=== PATIENT | male | born 1970 | race Caucasian/White ===

== ENCOUNTER → 2017-07-01 | Outpatient (CLI) | payer BC ==
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
== END ==
LOC: SLEEP 15:39
PROVIDERS: ATTEND Internal Medicine Critical Care Medicine
DX: G47.33 Obstructive sleep apnea (adult) (pediatric) (principal); G47.10 Hypersomnia, unspecified; E78.5 Hyperlipidemia, unspecified; I10 Essential (primary) hypertension; F17.200 Nicotine dependence, unspecified, uncomplicated; Z79.899 Other long term (current) drug therapy
CPT/HCPCS: 99211

== ENCOUNTER → 2018-01-06 | Outpatient (CLI) | payer BC ==
--- NOTE | 2018-01-06 15:43 | PN ---
PROGRESS NOTE This is a 47-year-old male patient coming in for a followup regarding his NICOLE treatment. The patient was diagnosed having severe NICOLE with an AHI of 79. The patient has been asked to come and undergo a CPAP titration. However he was unable to complete the titration and he left AMA. Based on that, I gave the patient an automatic CPAP unit and today he is coming in for a compliancy check. It seems that the patient is compliant and he is trying to become more compliant as he sees benefits from the treatment. He has been able to average around 4.8 hours of CPAP use per night. His CPAP use for more than 4 hours is 16/30 over the past 30 days. He is on an auto CPAP mode with minimum pressure of 4, maximum pressure of 20 and his P90 pressure is at 13.2. He is having leaks around 30 L per minute. His AHI while on treatment is down to 1.6. He has been benefiting from the treatment. He was using a medium-sized Simplus full-face mask, which I have upgraded to a large-sized and currently he is using a Grant FX with a chin strap. He prefers the nose pillow. However he notes that at times the pressure is quite high to the point where it leaks around his nose and he wants to fix it at a lower pressure. Based on the P90 pressure which was at 13.2, I changed the patient to a CPAP pressure which is fixed at 13 and this will hopefully help with his compliancy. I also put a 10 minutes of ramp time. The patient is benefitting from treatment, much more alert and awake during the day and has no specific complaints. He is very content with the treatment. REVIEW OF SYSTEMS: CONSTITUTIONAL: No recent weight gain, weight loss. No fever, chills or night sweats. No allergic rhinitis. No sinus pain. No cough or sputum production. No chest pain. No palpitation. No heartburn. No nausea or vomiting. No dysuria, frequency or urgency. No nocturia. No falls. No grinding of the teeth. No sleepwalking or sleep talking. No anxiety or depression. No change in mental status, seizure activity or any other problems. BP is 137/80, pulse 63, respirations 16, temperature 98.4, saturation 95% on room air. BMI 36.4, weight is 261. Height is 71 inches. Verona score is down to 2. GENERAL APPEARANCE: Obese, calm, comfortable. Head is atraumatic, normocephalic. Neck is short and supple. Crowding of posterior pharynx. Mallampati class IV. LUNGS: Clear to auscultation. HEART: Sounds are regular. Normal S1, S2. No S3. No murmurs. ABDOMEN: Soft, nontender. No organomegaly. EXTREMITIES: No edema. No cyanosis or clubbing. NEUROLOGIC: The patient is alert and oriented x3. There is no focal neurological deficits. PSYCHIATRIC: The patient has appropriate mood and affect. SKIN: Negative for any wounds or ulceration. IMPRESSION: 1. Severe obstructive sleep apnea with an AHI of 89, currently on auto CPAP therapy. 2. Hypersomnia, improving. 3. Leaks around the mask currently utilizing a nose pillow with improved compliance. 4. haul driver. PLAN: 1. Continue to using the Grant FX nose mask with a chin strap. 2. Switch this patient to a fixed CPAP with a pressure of 30 cm of water with a C flex of 3. 3. Add 10 minutes of ramp time. 4. Encourage weight loss. 5. Treatment is successful and would like to see improved compliance over the next few months. For the most part, the patient is responding to treatment. Verona score is down to 2. Will continue to follow. MMODL / IJN: [id number] /
== END | disposition home or self-care (01) ==
LOC: SLEEP 13:09
PROVIDERS: ATTEND Internal Medicine Critical Care Medicine
DX: G47.33 Obstructive sleep apnea (adult) (pediatric) (principal); G47.10 Hypersomnia, unspecified; Z99.89 Dependence on other enabling machines and devices

== ENCOUNTER → 2018-06-20 | Outpatient (CLI) | payer BC ==
--- NOTE | 2018-06-20 11:29 | XR ---
Lumbar spine HISTORY: Low back pain 3 views of the lumbar spine Lumbar vertebral bodies show preserved height, alignment, bone mineralization. There is partial sacra lization of L5. Loss of disc height L5-S1. Multilevel spondylosis is present. Vascular calcifications noted in the aortoiliac distribution. IMPRESSION: Degenerative disc disease and additional findings above. Lumbar MRI may be of benefit.
== END ==
LOC: RADXRMAIN 12:00
PROVIDERS: ATTEND Family Medicine
DX: M54.9 Dorsalgia, unspecified (principal); M51.36 Other intervertebral disc degeneration, lumbar region
CPT/HCPCS: 72100

== ENCOUNTER → 2018-07-30 | Outpatient (CLI) | payer BC ==
--- NOTE | 2018-07-30 12:26 | XR ---
EXAMINATION TYPE: XR chest 2V DATE OF EXAM: 07/30/2018 COMPARISON: None INDICATION: Cough TECHNIQUE: Frontal and lateral views of the chest are obtained. FINDINGS: The heart size is normal. The pulmonary vasculature is normal. There is a left upper lobe consolidation. Correlate for pneumonia. Underlying mass is not excluded. T his should be followed to clearing. . IMPRESSION: 1. Left upper lobe consolidation suspicious for pneumonia. Underlying mass is not excluded. Follow-up to clearing is recommended.
--- NOTE | 2018-07-30 12:46 | CT ---
EXAMINATION TYPE: CT abdomen pelvis wo con DATE OF EXAM: 07/30/2018 COMPARISON: None HISTORY: Hematuria CT DLP: 876 mGycm Automated exposure control for dose reduction was used. TECHNIQUE: Helical acquisition of images from the lung bases through the pelvis. FINDINGS: Lack of intravenous contrast could compromise sensitivity. LUNG BASES: No significant abnormality is appreciated. AORTA: No significant abnormality is appreciataed. LIVER/GB: No significant abnormality is appreciated. PANCREAS: No significant abnormality is seen. SPLEEN: No significant abnormality is seen. ADRENALS: No significant abnormality is seen. KIDNEYS: Nonobstructive calculus present at the lower pole of the right kidney measures approximately 7 to 8 mm, midpole calculus measures only 3 mm. Right kidney lower pole shows a focus of decreased a ttenuation measuring approximately 2.5 cm which may represent a cortical cyst. No ureteral calculus o r hydronephrosis bilaterally. REPRODUCTIVE ORGANS: Prostate shows associated calcifications. URINARY BLADDER: No significant abnormality is seen. BOWEL: No significant abnormality is seen. Appendix is normal. FREE AIR: No Free Air is visible. ASCITES: None visible. PELVIC ADENOPATHY: None visualized. RETROPERITONEAL ADENOPATHY: No Retroperitoneal Adenopathy visible. OSSEOUS STRUCTURES: No significant abnormality is seen. Partial sacralization of L5 on the left, spi nal curvature could be positional. IMPRESSION: NONOBSTRUCTIVE RIGHT NEPHROLITHIASIS. NONCONTRAST EXAM. ADDITIONAL FINDINGS ABOVE.
== END | disposition home or self-care (01) ==
LOC: RADCTMAIN 11:20
PROVIDERS: ATTEND Nurse Practitioner Family
DX: N20.0 Calculus of kidney (principal); N42.89 Other specified disorders of prostate; R05 Cough; R51 Headache; F17.200 Nicotine dependence, unspecified, uncomplicated
CPT/HCPCS: 71046; 74176

== ENCOUNTER → 2018-09-08 | Outpatient (CLI) | payer BC ==
--- NOTE | 2018-09-08 09:36 | NM ---
Nuclear medicine hepatobiliary scan. HISTORY: Pain. DOSAGE: The patient seated 8 ounces of ensure plus and 5.3 mCi of Technetium 99m Choletec. FINDINGS: There is normal hepatic extraction. The gallbladder is seen by 20 minutes. There is bilia ry to bowel clearance is not seen by 60 minutes. This is a nonspecific finding. Ejection fraction is 84%. IMPRESSION: 1. Ejection fraction of 84% which can occasionally be associated with hyperdynamic gallbladder, corre late clinically.
== END | disposition home or self-care (01) ==
LOC: RADNMMAIN 06:28
PROVIDERS: ATTEND Nurse Practitioner Family
DX: R10.11 Right upper quadrant pain (principal); R19.7 Diarrhea, unspecified
CPT/HCPCS: 78226; A9537

== ENCOUNTER 2018-11-13 10:19 | Day surgery (SDC) | payer BC ==
[2018-11-11 10:44] VITALS: BMI 36.2
[~2018-11-13 10:19] MED LIST: LACTATED RINGERS 1,000 ML IV SCH
[2018-11-13 10:32] VITALS: TEMP 97.8
[2018-11-13] MEDS ORDERED: LACTATED RINGERS 1,000 ML IV ONE (10:32)
[2018-11-13] MEDS ORDERED: LIDOCAINE 1% 20 ML VIAL (10MG/ML) FOR IV START INTRADERMA ONE (10:32)
[2018-11-13 10:43] LABS: Glucose,Whole Blood 92 mg/dL (75-99)
[2018-11-13] MEDS ORDERED: PROPOFOL 10 MG/ML 20 ML VIAL IV ONE (11:19)
--- NOTE | 2018-11-13 11:28 | P.GSHP ---
History of Present Illness H&P Date: 11/13/18 Chief Complaint: Change in bowel habits Patient has had recent complaints of frequent diarrhea. No rectal bleeding or melena. No mucus. No family history of colon cancer or inflammatory bowel disease. Past Medical History Past Medical History: Diabetes Mellitus, Hyperlipidemia, Hypertension Additional Past Medical History / Comment(s): NOT TAKING METFORMIN AT THIS TIME R/T DIARRHEA History of Any Multi-Drug Resistant Organisms: None Reported Past Surgical History: No Surgical Hx Reported Past Anesthesia/Blood Transfusion Reactions: No Reported Reaction Additional Past Anesthesia/Blood Transfusion Reaction / Comment(s): NO PRIOR SX HX Smoking Status: Current every day smoker - Past Family History Mother Family Medical History: Cancer Medications and Allergies Home Medications Medication Instructions Recorded Confirmed Type Atorvastatin [Lipitor] 40 mg PO DAILY 05/06/17 11/11/18 History Bisoprolol-Hctz 10-6.25 mg [Ziac 1 each PO DAILY 05/06/17 11/11/18 History 10-6.25] ALPRAZolam [Xanax] 0.25 mg PO HS PRN 11/11/18 11/11/18 History Escitalopram [Lexapro] 20 mg PO DAILY 11/11/18 11/11/18 History Allergies Allergy/AdvReac Type Severity Reaction Status Date / Time No Known Allergies Allergy Verified 11/11/18 10:36 Surgical - Exam Vital Signs Temp Pulse Resp BP Pulse Ox 97.8 F 71 18 200/93 97 11/13/18 10:30 11/13/18 10:30 11/13/18 10:30 11/13/18 10:30 11/13/18 10:30 Physical exam: General: Well-developed, well-nourished HEENT: Normocephalic, sclerae nonicteric Abdomen: Nontender, nondistended Extremities: No edema Neuro: Alert and oriented Assessment and Plan (1) Change in bowel habits Narrative/Plan: Will proceed with colonoscopy Current Visit: Yes Status: Acute Code(s): R19.4 - CHANGE IN BOWEL HABIT SNOMED Code(s): 229104212
--- NOTE | 2018-11-13 11:44 | P.PCN ---
Date of Procedure: 11/13/18 Procedure(s) Performed: PREOPERATIVE DIAGNOSIS: Change in bowel habits, diarrhea POSTOPERATIVE DIAGNOSIS: Sigmoid and rectal polyp PROCEDURE: Colonoscopy with random biopsy and snare polypectomies ANESTHESIA: MAC SURGEON: Yehuda Vallejo M.D. SPECIMENS: Random biopsies, polyps ENDOSCOPIC PROCEDURE: The patient was placed on the endoscopy table in the left decubitus position. The Olympus colonoscope was inserted into the anus and passed under direct visualization to the base of the cecum. The appendiceal orifice was visualized. From that point the scope was slowly withdrawn inspecting all surfaces carefully. There were no neoplastic inflammatory or polypoid lesions throughout the cecum, ascending, transverse, and descending colon. In the sigmoid colon a pedunculated polyp was identified and removed using the snare with cautery technique. In the rectum a smaller polyp was seen and removed in a similar fashion. I took random biopsies throughout the colon using the cold biopsy forceps. This was to evaluate for microscopic colitis. There was no visible diverticulosis. Digital rectal examination was normal. The patient was taken to the recovery room in stable condition per anesthesia guidelines. RECOMMENDATIONS: Await biopsy results.
[2018-11-13 11:51] VITALS: RESP 16
[2018-11-13 12:08] VITALS: BP 166/97; PULSE 68
== END 2018-11-13 12:33 | disposition home or self-care (01) ==
LOC: ORWHC2ENDO 10:19
PROVIDERS: ATTEND Surgery
DX: D12.5 Benign neoplasm of sigmoid colon (principal); D12.8 Benign neoplasm of rectum; E11.9 Type 2 diabetes mellitus without complications; E78.5 Hyperlipidemia, unspecified; F39 Unspecified mood [affective] disorder; F17.200 Nicotine dependence, unspecified, uncomplicated; I10 Essential (primary) hypertension; Z79.899 Other long term (current) drug therapy
CPT/HCPCS: 88305; 45385; 45380; J2704

== ENCOUNTER → 2018-12-01 | Outpatient (CLI) | payer BC ==
[2018-12-01 16:59] LABS: Basophils % (A) 0 %; Eosinophils # (A) 0.2 k/uL (0-0.7); Eosinophils % (A) 3 %; HCT 47.5 % (39.0-53.0); HGB 15.5 gm/dL (13.0-17.5); Lymphocytes # (A) 3.4 k/uL (1.0-4.8); Lymphocytes % (A) 39 %; MCH 29.5 pg (25.0-35.0); MCHC 32.8 g/dL (31.0-37.0); MCV 90.1 fL (80.0-100.0); Monocytes # (A) 0.4 k/uL (0-1.0); Monocytes % (A) 5 %; Neutrophils # (A) 4.5 k/uL (1.3-7.7); Neutrophils % (A) 52 %; Platelet Count 261 k/uL (150-450); RBC 5.27 m/uL (4.30-5.90); RDW 13.6 % (11.5-15.5); WBC 8.7 k/uL (3.8-10.6)
[2018-12-01 17:47] LABS: Total Volume 24 Hour,Urine 1250 mls (800-1800)
[2018-12-01 17:59] LABS: Total Protein 24 Hour,Urine 100 mg/24hr (42.0-225.0)
[2018-12-01 18:00] LABS: Creatinine 24 Hour,Urine 2217.5 mg/24hr (1000.0-2000.0)
--- NOTE | 2018-12-02 07:12 | US ---
EXAMINATION TYPE: US kidneys/renal and bladder DATE OF EXAM: 12/01/2018 COMPARISON: NONE CLINICAL HISTORY: R94.4 Abnormal results of kidney function studies. EXAM MEASUREMENTS: Right Kidney: 11.0 x 5.8 x 5.3 cm Left Kidney: 12.2 x 6.4 x 5.4 cm Right Kidney: parapelvic cysts noted measuring 1.) 1.5 x 1.3 x 1.4cm 2.) 1.4 x 1.2 x 1.1cm, inferior pole completely obscured by bowel gas Left Kidney: No hydronephrosis or masses seen Bladder: wnl Bilateral Jets seen: Yes There is no evidence for hydronephrosis at this point in time. No nephrolithiasis is seen. No rhys s are identified. The urinary bladder is anechoic. Bilateral ureteral jets are seen. IMPRESSION: Right-sided parapelvic renal cysts.
== END | disposition home or self-care (01) ==
LOC: RADUSWWP 15:50
PROVIDERS: ATTEND Family Medicine
DX: N28.1 Cyst of kidney, acquired (principal); R94.4 Abnormal results of kidney function studies; D72.829 Elevated white blood cell count, unspecified
CPT/HCPCS: 36415; 76770; 81050; 82570; 84156; 85025

== ENCOUNTER 2019-01-28 09:20 | Day surgery (SDC) | payer BC ==
[2019-01-26 09:53] VITALS: BMI 37.6
[~2019-01-28 09:20] MED LIST changes: +LIDOCAINE 1% 20 ML VIAL (10MG/ML) FOR IV START INTRADERMA PRN
[2019-01-28 09:55] LABS: Glucose,Whole Blood 103 mg/dL (75-99)
[2019-01-28 09:59] VITALS: TEMP 97.8
[2019-01-28] MEDS ORDERED: LIDOCAINE 1% INJ 10MG/ML (20 ML MDV) ONE (10:02)
[2019-01-28] MEDS ORDERED: PROPOFOL 10 MG/ML 20 ML VIAL IV ONE (10:02)
--- NOTE | 2019-01-28 10:31 | P.PCN ---
Date of Procedure: 01/28/19 Description of Procedure: BRIEF HISTORY: 49-year-old male with a medical history significant for reflux disease who was found to have Helicobacter pylori and treated with 14 days of quadruple therapy. The patient reports daily reflux, worse with lying down. Nausea with no vomiting. He denies any dysphagia or odynophagia. The patient did have great improvement on PPI therapy, but this has been held left treatment of his Helicobacter pylori. And he has subsequently had worsening of his symptoms of reflux. Previously he had reported loose stool which have improved. PROCEDURE PERFORMED: Esophagogastroduodenoscopy with biopsy. PREOPERATIVE DIAGNOSIS: GERD, history of Helicobacter pylori. ESTIMATED BLOOD LOSS: Minimal. IV sedation per anesthesia. PROCEDURE: After informed consent was obtained, the patient was brought into the endoscopy unit. IV sedation was administered by Anesthesia under continuous monitoring. Initially the Olympus GIF-190 video endoscope was inserted into the mouth. Esophagus intubated without any difficulty. It was gradually advanced into the stomach and duodenum and carefully examined. The bulb and the second part of the duodenum appeared normal, with biopsies taken given history of loose stool. The scope at this time was withdrawn to the stomach, adequately insufflated with air, and upon careful examination, mucosa of the antrum, body, cardia and the fundus appeared grossly normal, however there were findings of erythema and superficial erosions in the antrum and body suggestive of moderate gastritis with biopsies of the antrum and body taken. The scope was then withdrawn into the esophagus. The GE junction was located at 39 cm from the incisors. LA grade A esophagitis in the distal esophagus seen, with biopsies of the GE junction taken. There were no erosions or ulcerations seen and the patient tolerated the procedure well. IMPRESSION: 1. Moderate gastritis in antrum and body, biopsied. 2. Duodenal biopsies. 3. LA grade A esophagitis, GE junction biopsies. RECOMMENDATIONS: The findings of this examination were discussed with the patient and his . Would recommend resuming omeprazole 20 mg twice daily. Okay for diet. Await pathology from biopsies. Follow up with gastroenterology as previously scheduled..
[2019-01-28 10:34] VITALS: RESP 18
[2019-01-28 10:53] VITALS: BP 114/70; PULSE 68
== END 2019-01-28 10:50 | disposition home or self-care (01) ==
LOC: ORWHC2ENDO 09:20
PROVIDERS: ATTEND Internal Medicine
DX: K21.0 Gastro-esophageal reflux disease with esophagitis (principal); K29.50 Unspecified chronic gastritis without bleeding; Z86.19 Personal history of other infectious and parasitic diseases; I10 Essential (primary) hypertension; E78.5 Hyperlipidemia, unspecified; F17.200 Nicotine dependence, unspecified, uncomplicated; G47.33 Obstructive sleep apnea (adult) (pediatric); Z99.89 Dependence on other enabling machines and devices; E11.9 Type 2 diabetes mellitus without complications; Z79.84 Long term (current) use of oral hypoglycemic drugs; Z79.899 Other long term (current) drug therapy
CPT/HCPCS: 88305; 43239; J2001; J2704

== ENCOUNTER → 2019-05-21 | Outpatient (CLI) | payer BC ==
--- NOTE | 2019-05-21 08:55 | CT ---
EXAMINATION TYPE: CT abdomen pelvis wo con DATE OF EXAM: 05/21/2019 COMPARISON: 07/30/2018 HISTORY: Hematuria CT DLP: 1225 mGycm Examination of the solid and hollow viscera is limited given the lack of contrast. FINDINGS: LUNG BASES: No evidence for nodule. No evidence for infiltrate. LIVER/GB: The gallbladder is unremarkable. No space-occupying hepatic lesion. PANCREAS: No pancreatic mass identified. No inflammatory process seen. SPLEEN: No evidence for splenomegaly. No intrasplenic lesions seen. ADRENALS: No adrenal nodules identified. No evidence for thickening. KIDNEYS: Distal right ureteral calculus measuring 3 mm without significant hydronephrosis. Calculus i s approximately 2 or 3 cm from the right UVJ. No renal calculi identified. Hypoattenuating lesion rig ht kidney is unchanged and may reflect a cyst. BOWEL: Appendix has a normal appearance. No evidence of bowel obstruction. No inflammatory process. Lymph nodes: No evidence for adenopathy greater than 1 cm. Abdominal aorta: Atheromatous changes seen. No evidence for aneurysm. Genital organs: No significant abnormality. Other: No significant abnormality. IMPRESSION: 1.Distal right ureteral calculus measuring 3 mm without significant hydronephrosis. Calculus is appro ximately 2 or 3 cm from the right UVJ.
== END | disposition home or self-care (01) ==
LOC: RADCTMAIN 08:19
PROVIDERS: ATTEND Urology
DX: N20.1 Calculus of ureter (principal)
CPT/HCPCS: 74176

== ENCOUNTER → 2019-12-30 | Outpatient (CLI) | payer BC | END | disposition home or self-care (01) | LOC: LABWHC1 12:55 | PROVIDERS: ATTEND Family Medicine | DX: R05 Cough (principal); R50.9 Fever, unspecified | CPT/HCPCS: 87502 ==

== ENCOUNTER 2020-07-15 20:00 | Emergency (ER) | payer BC ==
[2020-07-15] MEDS ORDERED: ACETAMINOPHEN TAB 500 MG TAB PO STA (20:22)
[2020-07-15] MEDS ORDERED: DIPH,PERTUS(ACELL)TETVAC-LF 0.5 ML VIAL IM ONE (20:22)
--- NOTE | 2020-07-15 20:48 | XR ---
EXAMINATION TYPE: XR knee 4V RT DATE OF EXAM: 07/15/2020 CLINICAL HISTORY: Pain after falling 4 days ago. TECHNIQUE: Three views of the right knee are obtained. Fourth sunrise view. COMPARISON: None. FINDINGS: There is no acute fracture/dislocation evident in right knee. Mild to moderate tricompartm ent joint space loss without significant spurring. Small spur from anterior superior patella at the d istal quadriceps tendon attachment. Patellar articulation satisfactory on the sunrise view. Mild diff use subcutaneous edema is present . Mild to moderate superficial infrapatellar focal fluid. IMPRESSION: There is no acute fracture or dislocation in the right knee.
--- NOTE | 2020-07-15 21:33 | ED ---
General Adult HPI - General Chief complaint: Extremity Injury, Lower Stated complaint: Knee Injury Time Seen by Provider: 07/15/20 20:10 Source: patient, RN notes reviewed, old records reviewed Mode of arrival: ambulatory Limitations: no limitations - History of Present Illness Initial comments: 50-year-old male patient presents to ED for evaluation of right knee injury. Patient reports that approximately 3 days ago he was walking when he tripped over a box and falling forward on a right flexed knee. Did not hit head. States that since then he has been having some pain and popping clicking noises range of motion. Physical exam difficulty ambulating. Patient reports that he has chronic back pain states that his back is little sore however this is minor does not want looked into or any imaging done on it. Denies any red flag symptoms. Systemic: Pt denies fatigue, fever/chills, rash. Pt denies weakness, night sweats, weight loss. Neuro: Pt denies headache, visual disturbances, syncope or pre-syncope. HEENT: Pt denies ocular discharge or irritation, otalgia, rhinorrhea, pharyngitis or notable lymphadenopathy. Cardiopulmonary: Pt denies chest pain, SOB, heart palpitations, dyspnea on exertion. Abdominal/GI: Pt denies abdominal pain, n/v/d. : Pt denies dysuria, burning w/ urination, frequency/urgency. Denies new onset urinary or bowel incontinence. MSK: Pt denies loss of strength or function in extremities. Neuro: Pt denies new onset weakness, paresthesias. - Related Data Home Medications Medication Instructions Recorded Confirmed Atorvastatin [Lipitor] 60 mg PO HS 05/06/17 01/28/19 Bisoprolol-Hctz 10-6.25 mg [Ziac 1 each PO HS 05/06/17 01/28/19 10-6.25] ALPRAZolam [Xanax] 0.25 mg PO DAILY PRN 11/11/18 01/28/19 Escitalopram [Lexapro] 20 mg PO HS 11/11/18 01/28/19 metFORMIN HCL [Glucophage] 500 mg PO HS 01/26/19 01/28/19 Allergies Allergy/AdvReac Type Severity Reaction Status Date / Time No Known Allergies Allergy Verified 01/26/19 09:38 Review of Systems ROS Statement: Those systems with pertinent positive or pertinent negative responses have been documented in the HPI. ROS Other: All systems not noted in ROS Statement are negative. Past Medical History Past Medical History: Diabetes Mellitus, GERD/Reflux, Hyperlipidemia, Hypertension, Renal Disease, Sleep Apnea/CPAP/BIPAP Additional Past Medical History / Comment(s): uses cpap, decrease kidney function, h-pylori History of Any Multi-Drug Resistant Organisms: None Reported Past Surgical History: No Surgical Hx Reported Additional Past Surgical History / Comment(s): colonoscopy Past Anesthesia/Blood Transfusion Reactions: No Reported Reaction Past Psychological History: Anxiety Smoking Status: Current every day smoker Past Alcohol Use History: None Reported Past Drug Use History: None Reported - Past Family History Mother Family Medical History: Cancer General Exam - General Exam Comments Initial Comments: Constitutional: NAD, AOX3, Pt has pleasant affect. HEENT: NC/AT, trachea midline, neck supple, no lymphadenopathy. External ears appear normal, without discharge. Mucous membranes moist. Eyes PERRLA, EOM intact. There is no scleral icterus. No pallor noted. Cardiopulmonary: RRR, no murmurs, rubs or gallops, no JVD noted. Lungs CTAB in anterior and posterior hendrickson. No peripheral edema. Abdominal exam: Abdomen soft and non-distended. Abdomen non-tender to palpation in all 4 quadrants. Neuro: CN II-XII grossly intact. No nuchal rigidity. No raccon eyes, no schilling sign, no hemotympanum. No cervical spinal tenderness. MSK: No posterior calf tenderness bilaterally, homans sign negative bilaterally. Right anterior knee is mildly tender to palpation. There is a small abrasion which was cleaned and bandaged. distal strength is intact and equal. Right knee range of motion somewhat limited secondary to discomfort. No localized area of tenderness to lumbar region, no skin changes. Limitations: no limitations Course Vital Signs 07/15/20 20:01 Temperature 98.4 F Pulse Rate 76 Respiratory 18 Rate Blood Pressure 169/97 O2 Sat by Pulse 97 Oximetry Medical Decision Making - Medical Decision Making 50-year-old male patient presents to ED for knee sprain. Plain film did not display any acute fracture. There was some swelling noted. Patient tetanus updated. Patient will be placed in knee immobilizer and will be nonweightbearing will follow up with primary care provider and orthopedic consult will return here if any worsening symptoms. Case discussed with Dr. Bone. Disposition Clinical Impression: Knee sprain Disposition: HOME SELF-CARE Condition: Stable Instructions (If sedation given, give patient instructions): Knee Sprain (ED) Additional Instructions: Follow up with primary care provider and orthopedic consult tomorrow. Use knee immobilizer and crutches, do not bear weight on right lower extremity. Return to ER if any worsening symptoms. Is patient prescribed a controlled substance at d/c from ED?: No Referrals: Rupert Castillo MD [Primary Care Provider] - 1-2 days Rohan Hallman DO [Doctor of Osteopathic Medicine] - 1-2 days
[2020-07-15 21:44] VITALS: BP 183/90; PULSE 67; RESP 16; TEMP 97.6
== END 2020-07-15 22:12 | disposition home or self-care (01) ==
LOC: EC 20:00
DX: S83.91XA Sprain of unspecified site of right knee, initial encounter (principal); I10 Essential (primary) hypertension; E11.9 Type 2 diabetes mellitus without complications; F41.9 Anxiety disorder, unspecified; G47.30 Sleep apnea, unspecified; E78.5 Hyperlipidemia, unspecified; F17.200 Nicotine dependence, unspecified, uncomplicated; Z79.84 Long term (current) use of oral hypoglycemic drugs; Z79.899 Other long term (current) drug therapy; Z23 Encounter for immunization; Z99.89 Dependence on other enabling machines and devices; W01.198A Fall on same level from slipping, tripping and stumbling with subsequent striking against other object, initial encounter; Y93.01 Activity, walking, marching and hiking; Y99.0 Civilian activity done for income or pay
CPT/HCPCS: 90471; 90715; 99284

== ENCOUNTER → 2021-11-16 | Outpatient (CLI) | payer BC ==
--- NOTE | 2021-11-17 19:29 | CT ---
EXAMINATION TYPE: CT abdomen pelvis wo con DATE OF EXAM: 11/16/2021 COMPARISON: CT 05/21/2019 HISTORY: Microscopic hematuria CT DLP: 1515.20 mGycm Automated exposure control for dose reduction was used. TECHNIQUE: Helical acquisition of images from the lung bases through the pelvis. FINDINGS: Lack of intravenous contrast compromises sensitivity of the exam LUNG BASES: No significant abnormality is appreciated. AORTA: No significant abnormality is appreciataed. LIVER/GB: No significant abnormality is appreciated. PANCREAS: No significant abnormality is seen. SPLEEN: No significant abnormality is seen. ADRENALS: No significant abnormality is seen. KIDNEYS: Right kidney shows a cystic focus along the anterior and medial cortex similar to prior exam measuring approximately 3 cm in size, there is no evident hydronephrosis or renal calculus bilateral ly. No ureteral calculus. REPRODUCTIVE ORGANS: Prostate calcifications are present, prostate shows a similar appearance to edi or, is slightly enlarged URINARY BLADDER: Thickened wall could be due to chronic bladder outlet obstruction BOWEL: No evident bowel obstruction, there is diverticular change associated with the colon, the lala endix is normal. FREE AIR: No Free Air is visible. ASCITES: None visible. PELVIC ADENOPATHY: None visualized. RETROPERITONEAL ADENOPATHY: No Retroperitoneal Adenopathy visible. OSSEOUS STRUCTURES: Degenerative disc changes are present in the visualized spine\. IMPRESSION: THERE IS A CYSTIC FOCUS ASSOCIATED WITH THE RIGHT KIDNEY WHICH IS NOT WELL CHARACTERIZED IN NONCONTRA ST EXAM. STATISTICALLY THE FOCUS OF LIKELY TO REPRESENT A SIMPLE CYST, SIMILAR TO PRIOR EXAM. Prosthe tic enlargement as described, correlate for possible chronic bladder outlet obstruction. Diverticulos is.
== END | disposition home or self-care (01) ==
LOC: RADCTMAIN 18:13
PROVIDERS: ATTEND Family Medicine
DX: N28.1 Cyst of kidney, acquired (principal)
CPT/HCPCS: 74176

== ENCOUNTER 2022-01-12 12:06 | Inpatient (IN) | payer BC ==
--- NOTE | 2022-01-12 13:03 | XR ---
EXAMINATION TYPE: XR chest 2V DATE OF EXAM: 01/12/2022 COMPARISON: Chest x-ray July 30, 2018 HISTORY: Chest pain. TECHNIQUE: Frontal and lateral views of the chest are obtained. FINDINGS: There is no suspicious new focal air space opacity, pleural effusion, or pneumothorax seen . The cardiac silhouette size is stable and upper limits of normal. The osseous structures are int act. IMPRESSION: No acute process. No significant change from prior.
[2022-01-12 13:17] LABS: Calcium 8.9 mg/dL (8.4-10.2); Potassium 3.6 mmol/L (3.5-5.1); Total Bilirubin 0.6 mg/dL (0.2-1.3); Total Protein 7.6 g/dL (6.3-8.2)
[2022-01-12 13:52] LABS: INR 0.9 (<1.2); Partial Thromboplastin Time 25.8 sec (22.0-30.0); Prothrombin Time 10.3 sec (9.0-12.0)
[2022-01-12] MEDS ORDERED: NITROGLYCERIN SL TABS 0.4 MG TAB SUBLINGUAL PRN (13:54)
[2022-01-12] MEDS ORDERED: MORPHINE SULFATE 2 MG/ML SYRINGE IVP PRN (13:54)
[2022-01-12] MEDS ORDERED: ASPIRIN 325 MG TAB PO STA (13:54)
[2022-01-12] MEDS ORDERED: HEPARIN SODIUM 1,000 UN/ML (10ML VL) IV ONE (13:54)
[2022-01-12 14:01] LABS: Basophils % (A) 0 %; Eosinophils # (A) 0.1 k/uL (0-0.7); Eosinophils % (A) 2 %; HCT 44.6 % (39.0-53.0); HGB 14.9 gm/dL (13.0-17.5); Lymphocytes # (A) 1.7 k/uL (1.0-4.8); Lymphocytes % (A) 24 %; MCH 30.5 pg (25.0-35.0); MCHC 33.4 g/dL (31.0-37.0); MCV 91.3 fL (80.0-100.0); Mean Platelet Volume 7.7; Monocytes # (A) 0.3 k/uL (0-1.0); Monocytes % (A) 5 %; Neutrophils # (A) 4.7 k/uL (1.3-7.7); Neutrophils % (A) 68 %; Platelet Count 229 k/uL (150-450); RBC 4.88 m/uL (4.30-5.90); RDW 13.3 % (11.5-15.5); WBC 6.9 k/uL (3.8-10.6)
--- NOTE | 2022-01-12 14:10 | ED ---
General Adult HPI - General Chief complaint: Chest Pain Stated complaint: chest pain Time Seen by Provider: 01/12/22 13:40 Source: patient, RN notes reviewed, old records reviewed Mode of arrival: wheelchair Limitations: no limitations - History of Present Illness Initial comments: 52-year-old male presenting for evaluation of chest pain. His pain began yesterday evening. Describes this as a pain and pressure in the center of his chest. This does not radiate. He states it was more severe yesterday evening. He states that currently this is a 1 out of 10. He feels almost completely normal currently. He has no prior history of CAD. He has history of hypertension and diabetes. He denies dyspnea. Denies vomiting. Denies lower extremity pain or swelling. - Related Data Home Medications Medication Instructions Recorded Confirmed Atorvastatin [Lipitor] 60 mg PO HS 05/06/17 07/15/20 Bisoprolol-Hctz 10-6.25 mg [Ziac 1 tab PO HS 05/06/17 07/15/20 10-6.25] ALPRAZolam [Xanax] 0.25 mg PO DAILY PRN 11/11/18 07/15/20 Escitalopram [Lexapro] 20 mg PO HS 11/11/18 07/15/20 metFORMIN HCL [Glucophage] 500 mg PO HS 01/26/19 07/15/20 Allergies Allergy/AdvReac Type Severity Reaction Status Date / Time No Known Allergies Allergy Verified 01/12/22 12:15 Review of Systems ROS Statement: Those systems with pertinent positive or pertinent negative responses have been documented in the HPI. ROS Other: All systems not noted in ROS Statement are negative. Past Medical History Past Medical History: Diabetes Mellitus, GERD/Reflux, Hyperlipidemia, Hypertension, Renal Disease, Sleep Apnea/CPAP/BIPAP Additional Past Medical History / Comment(s): uses cpap, decrease kidney function, h-pylori History of Any Multi-Drug Resistant Organisms: None Reported Past Surgical History: No Surgical Hx Reported Additional Past Surgical History / Comment(s): colonoscopy Past Anesthesia/Blood Transfusion Reactions: No Reported Reaction Past Psychological History: Anxiety Smoking Status: Former smoker Past Alcohol Use History: None Reported Past Drug Use History: None Reported - Past Family History Mother Family Medical History: Cancer General Exam Limitations: no limitations General appearance: alert, in no apparent distress Head exam: Present: atraumatic, normocephalic Eye exam: Present: normal appearance, PERRL ENT exam: Present: normal exam Neck exam: Present: normal inspection Respiratory exam: Present: normal lung sounds bilaterally. Absent: respiratory distress, wheezes Cardiovascular Exam: Present: regular rate, normal rhythm GI/Abdominal exam: Present: soft. Absent: distended, tenderness, guarding Extremities exam: Present: normal inspection, normal capillary refill. Absent: calf tenderness Neurological exam: Present: alert, oriented X3, CN II-XII intact. Absent: motor sensory deficit Psychiatric exam: Present: normal affect, normal mood Skin exam: Present: warm, dry, intact. Absent: cyanosis, diaphoretic Course Vital Signs 01/12/22 12:13 Temperature 98.6 F Pulse Rate 69 Respiratory 18 Rate Blood Pressure 138/83 O2 Sat by Pulse 97 Oximetry EKG Findings - EKG Comments: EKG Findings:: EKG: Sinus rhythm rate 65, MD interval 148, QRS duration 104, QTC 414, there is Q-wave in lead [address] segment elevation. Medical Decision Making - Medical Decision Making 52-year-old male presenting with an episode of chest pain which began yesterday evening and is nearly completely resolved. No prior history of CAD but signific ant risk factors. EKG is sinus rhythm without ST segment elevation. Chest x- rays negative. He has a normal CBC, CMP shows a creatinine 1.49 mildly elevated initial troponin is 0.633. This is consistent with a non-ST segment elevated [place]. Patient is given aspirin emergency department he started on heparin. I did discuss case both with Dr. Miller and with Dr. Patrick alegre for cardiology. - Lab Data Result diagrams: 01/12/22 12:25 01/12/22 12:25 Lab Results 01/12/22 01/12/22 01/12/22 Range/Units 12:25 12:25 12:25 WBC 6.9 (3.8-10.6) k/uL RBC 4.88 (4.30-5.90) m/uL Hgb 14.9 (13.0-17.5) gm/dL Hct 44.6 (39.0-53.0) % MCV 91.3 (80.0-100.0) fL MCH 30.5 (25.0-35.0) pg MCHC 33.4 (31.0-37.0) g/dL RDW 13.3 (11.5-15.5) % Plt Count 229 (150-450) k/uL MPV 7.7 Neutrophils % 68 % Lymphocytes % 24 % Monocytes % 5 % Eosinophils % 2 % Basophils % 0 % Neutrophils # 4.7 (1.3-7.7) k/uL Lymphocytes # 1.7 (1.0-4.8) k/uL Monocytes # 0.3 (0-1.0) k/uL Eosinophils # 0.1 (0-0.7) k/uL Basophils # 0.0 (0-0.2) k/uL PT 10.3 (9.0-12.0) sec INR 0.9 (<1.2) APTT 25.8 (22.0-30.0) sec Sodium 138 (137-145) mmol/L Potassium 3.6 (3.5-5.1) mmol/L Chloride 105 (98-107) mmol/L Carbon Dioxide 27 (22-30) mmol/L Anion Gap 6 mmol/L BUN 29 H (9-20) mg/dL Creatinine 1.49 H (0.66-1.25) mg/dL Est GFR (CKD-EPI)AfAm 62 (>60 ml/min/1.73 sqM) Est GFR (CKD-EPI)NonAf 54 (>60 ml/min/1.73 sqM) Glucose 163 H (74-99) mg/dL Calcium 8.9 (8.4-10.2) mg/dL Magnesium 2.0 (1.6-2.3) mg/dL Total Bilirubin 0.6 (0.2-1.3) mg/dL AST 31 (17-59) U/L ALT 30 (4-49) U/L Alkaline Phosphatase 114 (38-126) U/L Troponin I (0.000-0.034) ng/mL Total Protein 7.6 (6.3-8.2) g/dL Albumin 4.0 (3.5-5.0) g/dL 01/12/22 Range/Units 12:25 WBC (3.8-10.6) k/uL RBC (4.30-5.90) m/uL Hgb (13.0-17.5) gm/dL Hct (39.0-53.0) % MCV (80.0-100.0) fL MCH (25.0-35.0) pg MCHC (31.0-37.0) g/dL RDW (11.5-15.5) % Plt Count (150-450) k/uL MPV Neutrophils % % Lymphocytes % % Monocytes % % Eosinophils % % Basophils % % Neutrophils # (1.3-7.7) k/uL Lymphocytes # (1.0-4.8) k/uL Monocytes # (0-1.0) k/uL Eosinophils # (0-0.7) k/uL Basophils # (0-0.2) k/uL PT (9.0-12.0) sec INR (<1.2) APTT (22.0-30.0) sec Sodium (137-145) mmol/L Potassium (3.5-5.1) mmol/L Chloride (98-107) mmol/L Carbon Dioxide (22-30) mmol/L Anion Gap mmol/L BUN (9-20) mg/dL Creatinine (0.66-1.25) mg/dL Est GFR (CKD-EPI)AfAm (>60 ml/min/1.73 sqM) Est GFR (CKD-EPI)NonAf (>60 ml/min/1.73 sqM) Glucose (74-99) mg/dL Calcium (8.4-10.2) mg/dL Magnesium (1.6-2.3) mg/dL Total Bilirubin (0.2-1.3) mg/dL AST (17-59) U/L ALT (4-49) U/L Alkaline Phosphatase (38-126) U/L Troponin I 0.633 H* (0.000-0.034) ng/mL Total Protein (6.3-8.2) g/dL Albumin (3.5-5.0) g/dL Critical Care Time Critical Care Time: Yes Total Critical Care Time: 35 Disposition Clinical Impression: Acute non-ST elevation myocardial infarction (NSTEMI) Disposition: ADMITTED IP TO THIS [facility] Condition: Stable Is patient prescribed a controlled substance at d/c from ED?: No Referrals: Rupert Castillo MD [Primary Care Provider] - 1-2 days Decision to Admit Reason: Admit from EC Decision Date: 01/12/22 Decision Time: 14:10
[2022-01-12] MEDS: ATORVASTATIN 80 MG TAB PO SCH (14:36)
[2022-01-12] MEDS: HEPARIN SOD,PORK IN 0.45% NACL 25,000 UNIT in 0.45% NACL 1 250ML.BAG IV SCH (14:38)
--- NOTE | 2022-01-12 20:15 | ECHOF ---
Referral Reason:nstemi MEASUREMENTS -------- HEIGHT: 162.6 cm WEIGHT: 134.7 kg BP: RVIDd: 3.1 cm (< 3.3) IVSd: 1.2 cm (0.6 - 1.1) LVIDd: 5.0 cm (3.9 - 5.3) LVPWd: 1.5 cm (0.6 - 1.1) IVSs: 1.4 cm LVIDs: 4.6 cm LVPWs: 1.1 cm LA Diam: 4.3 cm (2.7 - 3.8) Ao Diam: 4.2 cm (2.0 - 3.7) AV Cusp: 2.2 cm (1.5 - 2.6) MV EXCURSION: 14.382 mm (> 18.000) MV EF SLOPE: 59 mm/s (70 - 150) EPSS: 0.6 cm MV E Ze: 0.56 m/s MV DecT: 174 ms MV A Ze: 0.65 m/s MV E/A Ratio: 0.86 RAP: 5.00 mmHg RVSP: 10.82 mmHg FINDINGS -------- Sinus rhythm. Morbid Obesity This was a techncally difficult study with suboptimal views, , Lumason utilized for enhancement of im ages. The left ventricular size is normal. Left ventricular wall thickness is normal. Overall left vent ricular systolic function is low-normal with, an EF between 50 - 55 %. The right ventricle is normal in size. The left atrium is mildly dilated. The right atrial size is normal. 5.0mg OF Lumason UTLIZED: 2 OR MORE WALL SEGMENTS NOT VISUALIZED. The aortic valve is trileaflet, and appears structurally normal. No aortic stenosis or regurgitation. Mild mitral regurgitation is present. Mild tricuspid regurgitation present. Right ventricular systolic pressure is normal at < 35 mmHg. The pulmonic valve was not well visualized. Echo free space represents a pericardial fat pad. CONCLUSIONS -------- 1. The left ventricular size is normal. 2. Left ventricular wall thickness is normal. 3. Overall left ventricular systolic function is low-normal with, an EF between 50 - 55 %. 4. The right ventricle is normal in size. 5. The left atrium is mildly dilated. 6. The right atrial size is normal. 7. 5.0mg OF Lumason UTLIZED: 2 OR MORE WALL SEGMENTS NOT VISUALIZED. 8. The aortic valve is trileaflet, and appears structurally normal. No aortic stenosis or regurgitati on. 9. Mild mitral regurgitation is present. 10. Mild tricuspid regurgitation present. 11. The pulmonic valve was not well visualized. 12. Echo free space represents a pericardial fat pad. CYCLE LIAISON: Crissy Bell RDCS
[2022-01-12] MEDS: METOPROLOL TARTRATE 25 MG TAB PO SCH (20:18)
[2022-01-12 20:27] LABS: Glucose,Whole Blood 127 mg/dL (75-99)
[2022-01-12] MEDS ORDERED: HEPARIN SODIUM 1,000 UN/ML (10ML VL) IV PRN (21:44)
[2022-01-13 04:07] LABS: Mean Platelet Volume 7.6; Platelet Count 211 k/uL (150-450)
[2022-01-13 06:10] LABS: Glucose,Whole Blood 111 mg/dL (75-99)
[2022-01-13] MEDS ORDERED: ASPIRIN 325 MG TAB PO SCH (09:00)
[2022-01-13] MEDS: ATORVASTATIN 80 MG TAB PO SCH (09:25)
[2022-01-13] MEDS: METOPROLOL TARTRATE 25 MG TAB PO SCH ×2 (09:25→20:05)
[2022-01-13] MEDS: HEPARIN SOD,PORK IN 0.45% NACL 25,000 UNIT in 0.45% NACL 1 250ML.BAG IV SCH (09:26)
[2022-01-13 11:53] LABS: Glucose,Whole Blood 91 mg/dL (75-99)
--- NOTE | 2022-01-13 12:32 | P.HPIM ---
History of Present Illness H&P Date: 01/13/22 52-year-old male well-known to the practice and usually sees Dr. Castillo, developed chest pain which began yesterday patient describes pain as a pressure in his chest he denies radiation was more severe yesterday evening he says it's currently a 1 out of 10 and feels almost completely normal at this time. Has no previous history of coronary artery disease. He does however have a long- standing history of hypertension and diabetes, and he has a half-brother who had a heart attack and underwent angioplasty with stent placement, both parents are , father secondary to suicide, mother secondary to breast cancer. Patient was somewhat agitated because he hadn't seen a physician until I set talked with them, them being him and his . I explained to Mr. Hernandez that he had chest pain he has diabetes and hypertension which do set him up for heart disease there is a family history of heart disease and I explained that he had serial cardiac enzymes that steadily went upward. His echocardiogram demonstrated normal ejection fraction with normal left ventricular activity. I told him that if he felt he wanted to leave that no one can keep him here, however I suggested to him that it was in his best interest to wait that the glue reel operator would be in and treat him appropriately because the enzymes were serially increasing, the patient appeared to be calmed and decided to stay I offered him my contact information so that he might call me at any Review of Systems Constitutional: Reports as per HPI Ears, nose, mouth and throat: Reports as per HPI Cardiovascular: Reports chest pain Respiratory: Reports dyspnea (Quit smoking 1 year ago) Gastrointestinal: Reports as per HPI Musculoskeletal: Reports as per HPI Integumentary: Reports as per HPI Neurological: Reports as per HPI Past Medical History Past Medical History: Diabetes Mellitus, GERD/Reflux, Hyperlipidemia, Hypertension, Renal Disease, Sleep Apnea/CPAP/BIPAP Additional Past Medical History / Comment(s): uses cpap, decrease kidney funct ion, h-pylori History of Any Multi-Drug Resistant Organisms: None Reported Past Surgical History: No Surgical Hx Reported Additional Past Surgical History / Comment(s): colonoscopy Past Anesthesia/Blood Transfusion Reactions: No Reported Reaction Past Psychological History: Anxiety Additional Psychological History / Comment(s): xanax as needed Smoking Status: Former smoker Past Alcohol Use History: None Reported Additional Past Alcohol Use History / Comment(s): smoker for 25 years 1 ppd Past Drug Use History: None Reported - Past Family History Mother Family Medical History: Cancer Medications and Allergies Home Medications Medication Instructions Recorded Confirmed Type Bisoprolol-Hctz 10-6.25 mg [Ziac 1 tab PO DAILY 05/06/17 01/12/22 History 10-6.25] Esomeprazole Magnesium 40 mg PO DAILY 01/12/22 01/12/22 History Allergies Allergy/AdvReac Type Severity Reaction Status Date / Time No Known Allergies Allergy Verified 01/12/22 15:13 Physical Exam Osteopathic Statement: *. No significant issues noted on an osteopathic structural exam other than those noted in the History and Physical/Consult. Vitals: Vital Signs Temp Pulse Pulse Resp BP BP Pulse Ox 01/13/22 08:00 97.9 F 55 L 18 149/81 95 01/13/22 04:00 98.1 F 60 17 145/84 95 01/13/22 01:27 16 01/12/22 23:48 98.3 F 63 16 143/75 96 01/12/22 20:00 97.8 F 60 18 157/107 94 L 01/12/22 18:18 97.5 F L 57 L 18 169/89 96 01/12/22 15:57 61 18 01/12/22 15:54 58 L 18 148/97 97 01/12/22 15:42 58 L 18 148/97 97 01/12/22 14:41 61 17 137/86 96 Intake and Output 01/12/22 01/13/22 01/13/22 22:59 06:59 14:59 Intake Total 310.333 149.366 Balance 310.333 149.366 Intake: Intake, IV Titration 70.333 149.366 Amount Heparin Sod,Pork in 0.45% 70.333 149.366 NaCl 25,000 unit In 0.45 % NaCl 1 250ml.bag @ 7. 423 UNITS/KG/HR 10 mls/hr IV .Q[facility]H [facility] Rx#: [id number] Oral 240 Other: Voiding Method Toilet Toilet Weight 134.717 kg General: [Patient awake, alert and oriented times 3. Patient in no acute distress.] HEENT: [PERRL. EOMI. No pharyngeal erythema or exudate.] Neck: [No adenopathy.] Cardiac: [Heart regular in rate and rhythm. No S3. No S4. No clicks, rubs. No murmur.] Lungs: [Clear to auscultation bilaterally.] Abdomen: [No mass. No organomegaly. Bowel sounds presnt and normoactive in all 4 quadrants. Morbid obesity noted Extremes: [No edema no cyanosis no claudication normal pulses] : Normal male genitalia Musculoskeletal: [No joint erythema, edema or tenderness.] Skin: [No rash.] Neurologic: [No lateralizing deficits. CN II - XII grossly intact.] Lymphatic: [No adenopathy.] Results Results: Serial troponins appreciated CBC & Chem 7: 01/13/22 03:40 01/12/22 12:25 Labs: Abnormal Lab Results - Last 24 Hours (Table) 01/12/22 01/12/22 01/12/22 Range/Units 12:25 12:25 14:45 APTT (22.0-30.0) sec BUN 29 H (9-20) mg/dL Creatinine 1.49 H (0.66-1.25) mg/dL Glucose 163 H (74-99) mg/dL POC Glucose (mg/dL) (75-99) mg/dL Troponin I 0.633 H* 0.941 H* (0.000-0.034) ng/mL 01/12/22 01/12/22 01/12/22 Range/Units 18:54 20:23 20:30 APTT 35.0 H (22.0-30.0) sec BUN (9-20) mg/dL Creatinine (0.66-1.25) mg/dL Glucose (74-99) mg/dL POC Glucose (mg/dL) 127 H (75-99) mg/dL Troponin I 1.280 H* (0.000-0.034) ng/mL 01/13/22 01/13/22 Range/Units 03:40 06:08 APTT 49.5 H (22.0-30.0) sec BUN (9-20) mg/dL Creatinine (0.66-1.25) mg/dL Glucose (74-99) mg/dL POC Glucose (mg/dL) 111 H (75-99) mg/dL Troponin I (0.000-0.034) ng/mL Thrombosis Risk Factor Assmnt - Choose All That Apply Any of the Below Risk Factors Present?: Yes Each Factor Represents 1 point: Age 41-60 years, Obesity (BMI >25) Other Risk Factors: No Other congenital or acquired thrombophilia - If yes, enter type in comment: No Thrombosis Risk Factor Assessment Total Risk Factor Score: 2 Thrombosis Risk Factor Assessment Level: Low Risk Assessment and Plan (1) Type 2 diabetes mellitus Current Visit: Yes Status: Acute Code(s): E11.9 - TYPE 2 DIABETES MELLITUS WITHOUT COMPLICATIONS SNOMED Code(s): 40656330 (2) Well-controlled hypertension Current Visit: Yes Status: Acute Code(s): I10 - ESSENTIAL (PRIMARY) HYPERTENSION SNOMED Code(s): 867353851 (3) Acute non-ST elevation myocardial infarction (NSTEMI) Current Visit: Yes Status: Acute Code(s): I21.4 - NON-ST ELEVATION (NSTEMI) MYOCARDIAL INFARCTION SNOMED Code(s): 188840128 Plan: Patient was admitted to the hospital for chest pain Which appears to have resolved Elevated serial troponins indicating probable non-ST elevation myocardial infarction Morbid obesity Hypertension well controlled Awaiting cardiology evaluation , anticipate catheterization Condition guarded Time with Patient: Greater than 30
[2022-01-13 12:46] LABS: Chol/HDL Ratio 8.81 Ratio; LDL Cholesterol,Calculated 189.2 mg/dL (0.0-131.0)
[2022-01-13] MEDS ORDERED: ASPIRIN 325 MG TAB PO STA (16:03)
[2022-01-13] MEDS ORDERED: NITROGLYCERIN SL TABS 0.4 MG TAB SUBLINGUAL PRN (16:03)
[2022-01-13] MEDS ORDERED: ALPRAZolam 0.25 MG TAB PO PRN (16:03)
[2022-01-13] MEDS ORDERED: ATORVASTATIN 80 MG TAB PO STA (16:03)
[2022-01-13] MEDS ORDERED: ALPRAZolam 0.5 MG TAB PO PRN (16:03)
--- NOTE | 2022-01-13 16:03 | P.CRDCN ---
History of Present Illness History of present illness: HISTORY OF PRESENTING ILLNESS Patient is a pleasant 52-year-old male with history of hypertension, hyperlipidemia however not taking his statin, sleep apnea, prediabetes mellitus, prior tobacco abuse quit 2 years ago who presents with chest and back pain. Patient states that initially it started somewhat in his back and felt like a pulled shoulder however then radiated into his chest associated with mild shortness breath. This lasted for a few hours and then came to emergency department he was found to have mildly elevated troponins up and the ones. He states that once the heparin drip was started the pain slowly eased up. He has not had any recurrence of chest pain. He still does have mild back ache. He denies any shortness breath. He did have a 2-D echo performed which showed EF 50-55%. REVIEW OF SYSTEMS At the time of my exam: CONSTITUTIONAL: Denies fever or chills. CARDIOVASCULAR: +chest pain, +mild shortness of breath, no orthopnea, PND or palpitations. RESPIRATORY: Denies cough. GASTROINTESTINAL: Denies abdominal pain, diarrhea, constipation, +mild nausea, no vomiting. MUSCULOSKELETAL: Denies myalgias. NEUROLOGIC: Denies numbness, tingling or weakness. ENDOCRINE: Denies fatigue, weight change, polydipsia or polyurina. GENITOURINARY: Denies burning, hematuria or urgency with micturation. HEMATOLOGIC: Denies history of anemia or bleeding. PHYSICAL EXAMINATION Vital signs reviewed. CONSTITUTIONAL: No apparent distress. HEENT: Head is normocephalic. Pupils are equal, round. Sclerae anicteric. Mucous membranes of the mouth are moist. No JVD. No carotid bruit. CHEST EXAMINATION: Lungs are clear to auscultation. No chest wall tenderness is noted on palpation or with deep breathing. HEART EXAMINATION: Regular rate and rhythm. S1, S2 heard. No murmurs, gallops or rub. ABDOMEN: Soft, nontender. Positive bowel sounds. EXTREMITIES: 2+ peripheral pulses, no lower extremity edema and no calf tenderness. NEUROLOGIC EXAMINATION: Patient is awake, alert and oriented x3. ASSESSMENT 1. Non-STEMI likely type I mechanism chest pain-free 2. Hypertension 3. Prediabetes mellitus 4. EF 50-55% 5. Hyperlipidemia 6. Obstructive sleep apnea PLAN Continue aspirin, beta rai, high intensity statin and heparin drip. Patient currently chest pain-free. Heart catheterization to be performed 01/14 unless patient develops recurrence of chest pain. Further recommendations to follow. Past Medical History Past Medical History: Diabetes Mellitus, GERD/Reflux, Hyperlipidemia, Hypertension, Renal Disease, Sleep Apnea/CPAP/BIPAP Additional Past Medical History / Comment(s): uses cpap, decrease kidney function, h-pylori History of Any Multi-Drug Resistant Organisms: None Reported Past Surgical History: No Surgical Hx Reported Additional Past Surgical History / Comment(s): colonoscopy Past Anesthesia/Blood Transfusion Reactions: No Reported Reaction Past Psychological History: Anxiety Additional Psychological History / Comment(s): xanax as needed Smoking Status: Former smoker Past Alcohol Use History: None Reported Additional Past Alcohol Use History / Comment(s): smoker for 25 years 1 ppd Past Drug Use History: None Reported - Past Family History Mother Family Medical History: Cancer Medications and Allergies Home Medications Medication Instructions Recorded Confirmed Type Bisoprolol-Hctz 10-6.25 mg [Ziac 1 tab PO DAILY 05/06/17 01/12/22 History 10-6.25] Esomeprazole Magnesium 40 mg PO DAILY 01/12/22 01/12/22 History Allergies Allergy/AdvReac Type Severity Reaction Status Date / Time No Known Allergies Allergy Verified 01/12/22 15:13 Physical Exam Vitals: Vital Signs Temp Pulse Resp BP Pulse Ox 01/13/22 12:00 97.7 F 55 L 18 157/74 96 01/13/22 08:00 97.9 F 55 L 18 149/81 95 01/13/22 04:00 98.1 F 60 17 145/84 95 01/13/22 01:27 16 01/12/22 23:48 98.3 F 63 16 143/75 96 01/12/22 20:00 97.8 F 60 18 157/107 94 L 01/12/22 18:18 97.5 F L 57 L 18 169/89 96 Intake and Output 01/13/22 01/13/22 01/13/22 06:59 14:59 22:59 Intake Total 949.366 Balance 949.366 Intake: Intake, IV Titration 149.366 Amount Heparin Sod,Pork in 0.45% 149.366 NaCl 25,000 unit In 0.45 % NaCl 1 250ml.bag @ 7. 423 UNITS/KG/HR 10 mls/hr IV .Q24H [facility] Rx#: [id number] Oral 800 Other: Voiding Method Toilet # Voids 2 Results 01/13/22 03:40 01/12/22 12:25 Cardiac Enzymes 01/12/22 Range/Units 18:54 Troponin I 1.280 H* (0.000-0.034) ng/mL Coagulation 01/12/22 01/13/22 Range/Units 20:30 03:40 APTT 35.0 H 49.5 H (22.0-30.0) sec Lipids 01/13/22 Range/Units 03:40 Triglycerides 273.00 H (0.00-149.00) mg/dL Cholesterol 275.00 H (0.00-200.00) mg/dL HDL Cholesterol 31.20 L (40.00-60.00) mg/dL Cholesterol/HDL Ratio 8.81 Ratio CBC 01/13/22 Range/Units 03:40 Plt Count 211 (150-450) k/uL Current Medications Generic Name Dose Route Start Last Admin Trade Name Freq PRN Reason Stop Dose Admin Aspirin 325 mg 01/13/22 09:00 01/13/22 09:25 Aspirin 325 Mg Tab PO 325 mg DAILY [facility] Administration Atorvastatin Calcium 80 mg 01/12/22 14:00 01/13/22 09:25 Atorvastatin 80 Mg Tab PO 80 mg DAILY [facility] Administration Heparin Sodium (Porcine) 0 unit 01/12/22 21:44 Heparin Sodium 1,000 Un/Ml (10ml Vl) IV PER PROTOCOL PRN Low PTT Protocol Heparin Sodium/Sodium Chloride 250 mls @ 10 mls/hr 01/12/22 14:00 01/13/22 09:26 25,000 unit/ Sodium Chloride IV 9.423 units/kg/hr .Q24H [facility] 12.694 mls/hr Administration Protocol 7.423 UNITS/KG/HR Metoprolol Tartrate 25 mg 01/12/22 21:00 01/13/22 09:25 Metoprolol Tartrate 25 Mg Tab PO 25 mg BID [facility] Administration Morphine Sulfate 2 mg 01/12/22 13:54 Morphine Sulfate 2 Mg/Ml Syringe IVP Q5M PRN Chest Pain Nitroglycerin 0.4 mg 01/12/22 13:54 Nitroglycerin Sl Tabs 0.4 Mg Tab SUBLINGUAL Q5M PRN Chest Pain Intake and Output 01/13/22 01/13/2201/13/22 06:59 14:59 22:59 Intake Total 949.366 Balance 949.366 Intake: Intake, IV Titration 149.366 Amount Heparin Sod,Pork in 0.45% 149.366 NaCl 25,000 unit In 0.45 % NaCl 1 250ml.bag @ 7. 423 UNITS/KG/HR 10 mls/hr IV .Q24H [facility] Rx#: [id number] Oral 800 Other: Voiding Method Toilet # Voids 2 01/13/22 03:40 01/12/22 12:25
[2022-01-13 17:00] LABS: Glucose,Whole Blood 119 mg/dL (75-99)
[2022-01-13 20:05] LABS: Glucose,Whole Blood 107 mg/dL (75-99)
[2022-01-14] MEDS: HEPARIN SOD,PORK IN 0.45% NACL 25,000 UNIT in 0.45% NACL 1 250ML.BAG IV SCH (03:30)
[2022-01-14 03:47] LABS: Mean Platelet Volume 8.3; Platelet Count 211 k/uL (150-450)
[2022-01-14 05:42] LABS: Glucose,Whole Blood 109 mg/dL (75-99)
[2022-01-14 06:12] LABS: Glucose,Whole Blood 128 mg/dL (75-99)
[2022-01-14] MEDS ORDERED: HEPARIN SODIUM,PORCINE 2,500 UNIT in SODIUM CHLORIDE 0.9% 250 ML IRRIGATION PRN (07:00)
[2022-01-14] MEDS ORDERED: HEPARIN SODIUM,PORCINE 10,000 UNIT in SODIUM CHLORIDE 0.9% 1,000 ML IRRIGATION PRN (07:00)
[2022-01-14] MEDS ORDERED: fentaNYL (PF) 50 MCG/ML 2 ML AMP ONE (07:18)
[2022-01-14] MEDS ORDERED: HEPARIN SODIUM 1,000 UN/ML (10ML VL) ONE (07:18)
[2022-01-14] MEDS ORDERED: LIDOCAINE 1% INJ 10MG/ML (20 ML MDV) ONE (07:19)
[2022-01-14] MEDS ORDERED: IV FLUID CONTINUATION 1,000 ML IV ONE (07:19)
[2022-01-14] MEDS ORDERED: VERAPAMIL 2.5 MG/ML 2 ML AMP ONE (07:19)
[2022-01-14] MEDS ORDERED: ASPIRIN 325 MG TAB ONE (07:50)
[2022-01-14] MEDS ORDERED: ASPIRIN 325 MG TAB PO ONE (07:51)
[2022-01-14] MEDS ORDERED: MIDAZOLAM 2 MG/2 ML VIAL IVP ONE (08:00)
[2022-01-14] MEDS ORDERED: fentaNYL (PF) 50 MCG/ML 2 ML AMP IVP ONE (08:00)
[2022-01-14] MEDS ORDERED: LIDOCAINE 1% INJ 10MG/ML (20 ML MDV) SQ ONE (08:01)
[2022-01-14] MEDS ORDERED: VERAPAMIL SYRINGE (5 MG/10 ML) INTRAARTER ONE (08:04)
[2022-01-14] MEDS: HEPARIN SODIUM 1,000 UN/ML (10ML VL) IV ONE ×3 (08:09→08:28)
[2022-01-14] MEDS ORDERED: TICAGRELOR 90 MG TAB ONE (08:11)
[2022-01-14] MEDS ORDERED: TICAGRELOR 90 MG TAB PO ONE (08:19)
[2022-01-14] MEDS: NITROGLYCERIN 1000MCG/10ML SYRINGE INTRACORON ONE ×3 (08:30→08:40)
[2022-01-14] MEDS ORDERED: IOPAMIDOL-370 125ML BTL INJ ONE (08:38)
[2022-01-14] MEDS ORDERED: IOPAMIDOL-370 100ML BTL INJ ONE (08:47)
--- NOTE | 2022-01-14 10:00 | P.PRCINT ---
Percutaneous Coronary Int. - Percutaneous Coronary Intervention Percutaneous Coronary Intervention: PROCEDURES PERFORMED: Left heart catheterization, bilateral coronary angiography, Penumbra aspiration thrombectomy, PCI proximal LAD with a 3.5 x 15mm Xience JUAN ALBERTO, post dilated with a 4.0 balloon INDICATION: NSTEMI CONSENT:I have discussed the risks, benefits and alternative therapies for the above-mentioned procedure and for both sedation/analgesia as well as necessary blood product administration, if indicated, as they pertain to this patient. The patient has indicated understanding and acceptance of the risks and procedures discussed. PROCEDURE: After the risks, benefits and alternatives of the above mentioned procedure explained in detail with the patient, informed consent was obtained. Patient was taken to the catheterization lab and prepped and draped in usual fashion. 1% lidocaine was used to anesthetize the right radial artery. A 6- Barbadian sheath was placed in the right radial artery using modified Seldinger technique. Left coronary angiography was performed with a 5-Barbadian JL 3.5 catheter and right coronary angiography was performed with a 5-Barbadian JR5 catheter in various views. A 5-Barbadian FR5 catheter was inserted into the left ventricle and pressure measurements were obtained. The decision was made to perform PCI of the LAD. Heparin was given for ACT > 250. A 6Fr CLS 3.5 guide was used to engage the left main. A 0.014 BMW wire was advanced into the distal LAD. Given extensive thrombus, aspiration thrombectomy was performed with a Penumbra catheter. The lesion was dilated with a 3.0 x 8 mm balloon. Next a 3.5 x 15mm Xience JUAN ALBERTO was deployed. The distal portion of the stent extended into the mildly aneurysmal portion of the LAD and therefore the distal end of the stent was post dilated with a 4.0 x 8mm balloon. The wire was pulled and final angiograms were performed. Pre intervention there was 95% stenosis and KENNETH 3 flow. Post intervention there was 0% stenosis and KENNETH 3 flow. The right radial sheath was removed and a TR band was placed with hemostasis achieved. The patient tolerated the procedure well. Patient was transported back to the post catheterization holding area in stable condition. Conscious Sedation: Patient was monitored under the direct supervision of vision of myself for conscious sedation using Versed and fentanyl for a total duration of 13 minutes HEMODYNAMICS: Aorta: 139/78 LV: 141/9, LVEDP 22 SELECTIVE CORONARY ARTERIOGRAPHY: LEFT MAIN: The left main is a large caliber vessel which bifurcates into the LAD and circumflex. There is no stenosis. LEFT ANTERIOR DESCENDING CORONARY ARTERY: LAD is a large caliber vessel which wraps around to the apex. There is a proximal LAD 95% stenosis with thrombus noted. There is a mildly aneurysmal portion of the mid LAD at the level of diagonal 1. Otherwise there is no significant stenosis. LEFT CIRCUMFLEX CORONARY ARTERY: Left circumflex is a large caliber vessel with no significant stenosis. RIGHT CORONARY ARTERY: The right coronary artery is a large caliber vessel which gives off a PDA and PLV branch and is the dominant vessel. There is a mid RCA 40% stenosis and a distal RCA 30% stenosis. FINAL IMPRESSION: 1. CAD as described above with 40% RCA stenosis and proximal LAD 95% stenosis s/p PCI proximal LAD with a 3.5 x 15mm Xience JUAN ALBERTO, post dilated with a 4.0 balloon 2. Mildly elevated left sided filling pressures. PLAN: 1. Aggressive risk factor modification per most recent ACC/AHA guidelines. 2. Continue dual antiplatelets for 12 months with aspirin and Brillinta.
[2022-01-14] MEDS ORDERED: RX INFO: IV CONTRAST WAS GIVEN 1 EACH MISC MISCELLANE PRN (10:02)
[2022-01-14] MEDS ORDERED: ZOLPIDEM 5 MG TAB PO PRN (10:02)
[2022-01-14] MEDS ORDERED: ATROPINE SULFATE 0.1 MG/ML 10ML SYRINGE IV PRN (10:02)
[2022-01-14] MEDS ORDERED: MAG HYDROX/AL HYDROX/SIMETH 30 ML CUP PO PRN (10:02)
[2022-01-14] MEDS ORDERED: NITROGLYCERIN SL TABS 0.4 MG TAB SUBLINGUAL PRN (10:02)
[2022-01-14] MEDS ORDERED: SODIUM CHLORIDE 0.9% 1,000 ML in EMPTY BAG 1 BAG IV SCH (10:15)
[2022-01-14 10:35] LABS: LDL Cholesterol,Calculated 160.7 mg/dL (0.0-131.0)
[2022-01-14 11:32] VITALS: BMI 40.0
[2022-01-14 11:46] LABS: Glucose,Whole Blood 94 mg/dL (75-99)
[2022-01-14 12:23] VITALS: BP 157/83; PULSE 57; RESP 20; TEMP 97.7
--- NOTE | 2022-01-14 13:45 | P.PN ---
Subjective Progress Note Date: 01/14/22 52-year-old male well-known to the practice and usually sees Dr. Castillo, developed chest pain which began yesterday patient describes pain as a pressure in his chest he denies radiation was more severe yesterday evening he says it's currently a 1 out of 10 and feels almost completely normal at this time. Has no previous history of coronary artery disease. He does however have a long- standing history of hypertension and diabetes, and he has a half-brother who had a heart attack and underwent angioplasty with stent placement, both parents are , father secondary to suicide, mother secondary to breast cancer. Patient was somewhat agitated because he hadn't seen a physician until I set evelyn ked with them, them being him and his . I explained to Mr. Hernandez that he had chest pain he has diabetes and hypertension which do set him up for heart disease there is a family history of heart disease and I explained that he had serial cardiac enzymes that steadily went upward. His echocardiogram demonstrated normal ejection fraction with normal left ventricular activity. I told him that if he felt he wanted to leave that no one can keep him here, however I suggested to him that it was in his best interest to wait that the car driver would be in and treat him appropriately because the enzymes were serially increasing, the patient appeared to be calmed and decided to stay I offered him my contact information so that he might call me at any 01/14/2022 echo reporting EF 50-55% . Maintained on heparin drip . Currently denies chest pain, palpitations or shortness of breath. Reports his initial chest pain started out as a pinch sensation between his shoulder blades, procee ded around to the anterior right shoulder further radiating across the left chest. scheduled for cardiac catheterization this morning. Objective - Vital Signs Vital signs: Vital Signs Temp 98.1 F 01/14/22 09:05 Pulse 56 L 01/14/22 10:26 Resp 16 01/14/22 10:26 BP 151/82 01/14/22 10:26 Pulse Ox 97 01/14/22 10:26 Intake & Output 01/13/22 01/14/22 01/14/22 18:59 06:59 18:59 Intake Total 1309.366 245.284 100 Balance 1309.366 245.284 100 Weight 130.3 kg Intake: IV 100 Intake, IV Titration 149.366 245.284 Amount Heparin Sod,Pork in 0.45% 149.366 245.284 NaCl 25,000 unit In 0.45 % NaCl 1 250ml.bag @ 7. 423 UNITS/KG/HR 10 mls/hr IV .Q24H [facility] Rx#: [id number] Oral 1160 Other: Voiding Method Toilet # Voids 2 - Exam PHYSICAL EXAM: VITAL SIGNS: As above GENERAL: Sitting up in bed, in no acute distress HEENT: Conjunctivae normal. eyes normal. NECK: No JVD. No thyroid enlargement. No LNs CARDIOVASCULAR: S1, S2 regular.. No murmur RESPIRATION: Breath sounds diminished in the bases. No rhonchi or crackles. No bronchial breathing. ABDOMEN: Soft, nontender . No guarding. no masses palpable. No ascites, No hepatosplenomegaly.Bowel sounds heard. LEGS: No edema. no swelling PSYCHIATRY: Alert and oriented X3, mood and affect normal. NERVOUS SYSTEM: Cranial N 2-12 grossly normal. Moves all 4 limbs. Diffuse weakness No focal deficits. Strength and sensation grossly intact.. Skin: Warm and dry, no rash - Labs CBC & Chem 7: 01/14/22 03:11 01/12/22 12:25 Labs: Abnormal Lab Results - Last 24 Hours (Table) 01/13/22 01/13/22 01/13/22 Range/Units 03:40 16:58 18:31 APTT 37.2 H (22.0-30.0) sec POC Glucose (mg/dL) 119 H (75-99) mg/dL Triglycerides 273.00 H (0.00-149.00) mg/dL Cholesterol 275.00 H (0.00-200.00) mg/dL LDL Cholesterol, Calc 189.2 H (0.0-131.0) mg/dL VLDL Cholesterol, Calc 54.60 H (5.00-40.00) mg/dL HDL Cholesterol 31.20 L (40.00-60.00) mg/dL 01/13/22 01/13/22 01/14/22 Range/Units 20:03 23:49 03:11 APTT 52.7 H (22.0-30.0) sec POC Glucose (mg/dL) 107 H (75-99) mg/dL Triglycerides 331.00 H (0.00-149.00) mg/dL Cholesterol 256.00 H (0.00-200.00) mg/dL LDL Cholesterol, Calc 160.7 H (0.0-131.0) mg/dL VLDL Cholesterol, Calc 66.20 H (5.00-40.00) mg/dL HDL Cholesterol 29.10 L (40.00-60.00) mg/dL 01/14/22 01/14/22 Range/Units 05:34 06:11 APTT (22.0-30.0) sec POC Glucose (mg/dL) 109 H 128 H (75-99) mg/dL Triglycerides (0.00-149.00) mg/dL Cholesterol (0.00-200.00) mg/dL LDL Cholesterol, Calc (0.0-131.0) mg/dL VLDL Cholesterol, Calc (5.00-40.00) mg/dL HDL Cholesterol (40.00-60.00) mg/dL Assessment and Plan Assessment: Acute NSTEMI,EF 50-55%, cath pending DM II HTN Hyperlipidemia Morbid obesity, BMI 40.1 Obstructive sleep apnea Plan: Continue on current medication regime, monitoring and symptomatic treatment.NPO, Cardiac cath pending. The impression and plan of care has been dictated as directed. : I performed a history and examination of this patient, discussed the same with the dictator. I agree with the dictator's note ,documented as a scribe. Any additional findings or plans will be noted.
[2022-01-14] MEDS: ATORVASTATIN 80 MG TAB PO SCH (15:20)
[2022-01-14] MEDS: METOPROLOL TARTRATE 25 MG TAB PO SCH (15:21)
[2022-01-14] MEDS ORDERED: TICAGRELOR 90 MG TAB PO SCH (21:00)
[2022-01-15] MEDS ORDERED: ASPIRIN 81 MG PO SCH (09:00)
--- NOTE | 2022-01-15 13:22 | P.DS ---
Providers Date of admission: 01/12/22 13:54 Expected date of discharge: 01/14/22 Attending physician: Subhash Miller Consults: 01/12/22 13:54 Consult Physician Urgent Consulting Provider: Pedro Nguyen Consult Reason/Comments: NSTEMI Do you want consulting provider notified?: Already Contacted 01/14/22 10:02 Consult Physician Routine Consulting Provider: [facility] Consult Reason/Comments: Post Interventional patient Do you want consulting provider notified?: Already Contacted Primary care physician: Rupert Castillo Hospital Course: Final Diagnoses: Acute NSTEMI,EF 50-55%, cath. Reporting CAD with 40% RCA stenosis, proximal LAD 95% stenosis status post PTCA proximal LAD, mildly elevated left sided filling pressures. DM II HTN Hyperlipidemia Morbid obesity, BMI 40.1 Obstructive sleep apnea Hospital course:52-year-old male well-known to the practice and usually sees Dr. Castillo, developed chest pain which began yesterday patient describes pain as a pressure in his chest he denies radiation was more severe yesterday evening he says it's currently a 1 out of 10 and feels almost completely normal at this time. Has no previous history of coronary artery disease. He does however have a long-standing history of hypertension and diabetes, and he has a half-brother who had a heart attack and underwent angioplasty with stent placement, both parents are , father secondary to suicide, mother secondary to breast cancer. Patient was somewhat agitated because he hadn't seen a physician until I set talked with them, them being him and his . I explained to Mr. Hernandez that he had chest pain he has diabetes and hypertension which do set him up for heart disease there is a family history of heart disease and I explained that he had serial cardiac enzymes that steadily went upward. His echocardiogram demonstrated normal ejection fraction with normal left ventricular activity. I told him that if he felt he wanted to leave that no one can keep him here, however I suggested to him that it was in his best interest to wait that the drafter detail would be in and treat him appropriately because the enzymes were serially increasing, the patient appeared to be calmed and decided to stay I offered him my contact information so that he might call me at any 01/14/2022 echo reporting EF 50-55% . Maintained on heparin drip . Currently denies chest pain, palpitations or shortness of breath. Reports his initial chest pain started out as a pinch sensation between his shoulder blades, proceeded around to the anterior right shoulder further radiating across the left chest. scheduled for cardiac catheterization this morning Cardiac cath reported CAD with 40% RCA stenosis, proximal LAD 95% stenosis status post PTCA proximal LAD, mildly elevated left sided filling pressures. Tolerated procedure well. Cleared by surgery for discharge and to continue on dual antiplatelet therapy for 12 months with both aspirin and Brilenta. With modification reinforced. Denies chest pain, palpitations or shortness of breath. Significant clinical improvement. Patient will be discharged home today in stable condition with guarded prognosis. The impression and plan of care has been dictated as directed. : I performed a history and examination of this patient, discussed the same with the dictator. I agree with the dictator's note ,documented as a scribe. Any additional findings or plans will be noted. Patient Condition at Discharge: Stable Plan - Discharge Summary Discharge Rx Participant: No New Discharge Prescriptions: New Aspirin 81 mg PO DAILY #90 tab Ticagrelor [Brilinta] 90 mg PO BID #180 tab Metoprolol Tartrate [Lopressor] 12.5 mg PO BID #180 tab Atorvastatin [Lipitor] 80 mg PO DAILY #90 tab Nitroglycerin Sl Tabs [Nitrostat] 0.4 mg SUBLINGUAL Q5M PRN #100 tab PRN Reason: Chest Pain Discontinued Bisoprolol-Hctz 10-6.25 mg [Ziac 10-6.25] 1 tab PO DAILY No Action Esomeprazole Magnesium 40 mg PO DAILY Discharge Medication List Esomeprazole Magnesium 40 mg PO DAILY 01/12/22 [History] Aspirin 81 mg PO DAILY #90 tab 01/14/22 [Rx] Atorvastatin [Lipitor] 80 mg PO DAILY #90 tab 01/14/22 [Rx] Metoprolol Tartrate [Lopressor] 12.5 mg PO BID #180 tab 01/14/22 [Rx] Nitroglycerin Sl Tabs [Nitrostat] 0.4 mg SUBLINGUAL Q5M PRN #100 tab 01/14/22 [Rx] Ticagrelor [Brilinta] 90 mg PO BID #180 tab 01/14/22 [Rx] Follow up Appointment(s)/Referral(s): Pedro Nguyen DO [STAFF PHYSICIAN] - 01/22/22 3:15 pm Rupert Castillo MD [Primary Care Provider] - 01/18/22 9:00 am Patient Instructions/Handouts: Heart Attack (DC), Hypertension (DC), Type 2 Diabetes Management for Adults (DC) Activity/Diet/Wound Care/Special Instructions: For a Free glucometer and low-cost testing supplies use: [facility]: [id number], [place] [id number], . Discharge Disposition: HOME SELF-CARE
== END 2022-01-14 17:01 | disposition home or self-care (01) | DRG 247 ==
LOC: EC 12:06 → 3SCARD 13:54
PROVIDERS: ADMIT Family Medicine; ATTEND Family Medicine
PROC: 4A023N7 Measurement of Cardiac Sampling and Pressure, Left Heart, Percutaneous Approach (ICD-10-PCS; 2022-01-14)
PROC: B2111ZZ Fluoroscopy of Multiple Coronary Arteries using Low Osmolar Contrast (ICD-10-PCS; 2022-01-14)
PROC: 027034Z Dilation of Coronary Artery, One Artery with Drug-eluting Intraluminal Device, Percutaneous Approach (ICD-10-PCS; principal; 2022-01-14 09:20)
PROC: 02C03ZZ Extirpation of Matter from Coronary Artery, One Artery, Percutaneous Approach (ICD-10-PCS; 2022-01-14 09:20)
DX: I21.4 Non-ST elevation (NSTEMI) myocardial infarction (principal); Z68.41 Body mass index [BMI] 40.0-44.9, adult; E11.9 Type 2 diabetes mellitus without complications; E66.01 Morbid (severe) obesity due to excess calories; I25.10 Atherosclerotic heart disease of native coronary artery without angina pectoris; I10 Essential (primary) hypertension; G47.33 Obstructive sleep apnea (adult) (pediatric); F41.9 Anxiety disorder, unspecified; E78.5 Hyperlipidemia, unspecified; Z80.3 Family history of malignant neoplasm of breast; Z82.49 Family history of ischemic heart disease and other diseases of the circulatory system; Z87.891 Personal history of nicotine dependence; Z79.84 Long term (current) use of oral hypoglycemic drugs
CPT/HCPCS: 36415; 71046; 80053; 80061; 83735; 84484; 85025; 85049; 85610; 85730; 93005; 93306; 93458; 96365; 96366; 99291

== ENCOUNTER → 2022-08-20 | Outpatient (CLI) | payer BC ==
[2022-08-20 19:06] LABS: ALT 25 U/L (10-49); AST 21 U/L (14-35); Chol/HDL Ratio 5.77 Ratio; LDL Cholesterol,Calculated 127.8 mg/dL (0.0-131.0)
== END | disposition home or self-care (01) ==
LOC: LABWHC1 12:40
PROVIDERS: ATTEND Internal Medicine
DX: E78.2 Mixed hyperlipidemia (principal)
CPT/HCPCS: 36415; 80061; 84450; 84460

== ENCOUNTER → 2023-06-03 | Outpatient (CLI) | payer BC ==
[2023-06-03 20:25] LABS: ALT 39 U/L (10-49); AST 24 U/L (14-35); Chol/HDL Ratio 5.03 Ratio; LDL Cholesterol,Calculated 117.2 mg/dL (0.0-131.0)
== END | disposition home or self-care (01) ==
LOC: LABWHC1 12:33
PROVIDERS: ATTEND Internal Medicine Interventional Cardiology
DX: E78.2 Mixed hyperlipidemia (principal)
CPT/HCPCS: 36415; 80061; 84450; 84460